=== PATIENT | female | born 1985 | race Caucasian/White ===

== ENCOUNTER 2022-09-24 16:53 | Inpatient (IN) | payer OTHER ==
[2022-09-24] VITALS (11 sets, daily range): BP systolic 105–150; BP diastolic 59–96
[~2022-09-24] VITALS: Ht 175.3 cm; Wt 97.5 kg
[2022-09-24] MEDS ORDERED: IRON27TA2 PO (17:29)
[2022-09-24] MEDS ORDERED: ECOT81TA5 PO (17:29)
[2022-09-24] MEDS ORDERED: PRENTAB9 PO (17:29)
[2022-09-24] MEDS ORDERED: FOLI1TAB11 PO (17:29)
[2022-09-24] MEDS ORDERED: HOME MED LIST COMPLETE! XX SCH (17:30)
[2022-09-24] MEDS ORDERED: LACTATED RINGER'S 1000 ML IV STA (19:16)
[2022-09-24] MEDS ORDERED: LR 1,000 ML IV SCH (19:20)
[2022-09-24] MEDS ORDERED: LIDOCAINE 1% MDV 20ML VIAL INFIL PRN (19:20)
[2022-09-24] MEDS ORDERED: OXYTOCIN DRIP 30 UNITS in IV 1 EA IV SCH (19:20)
[2022-09-24] MEDS ORDERED: TRANEXAMIC ACID INJection 1,000 MG in NS 100 ML IV PRN (19:20)
[2022-09-24] MEDS ORDERED: OXYTOCIN DRIP 30 UNITS in IV 1 EA IV PRN ×4 (19:20)
[2022-09-24] MEDS ORDERED: METHYLERGONOVINE MALEATE 0.2MG/ML 1ML VIAL IM PRN (19:20)
[2022-09-24 19:55] LABS: HEMATOCRIT 37.1 % (36.0-47.0); HEMOGLOBIN 12.9 g/dl (12.0-15.5); MEAN CORPUSCULAR HGB CONC 34.8 g/dl (32.0-36.5); MEAN CORPUSCULAR VOLUME 92.1 fl (80.0-96.0); PLATELET COUNT, AUTOMATED 182 10^3/uL (150-450); RED BLOOD COUNT 4.03 10^6/uL (4.00-5.40); WHITE BLOOD COUNT 10.5 10^3/uL (4.0-10.0)
[2022-09-24] MEDS ORDERED: LR 500 ML IV PRN (23:30)
[2022-09-24] MEDS ORDERED: ONDANSETRON 4MG 2ML VIAL IV PRN (23:30)
[2022-09-24] MEDS ORDERED: NALOXONE INJ 0.4MG/1ML VIAL IV PRN (23:30)
[2022-09-24] MEDS ORDERED: FENTANYL/ROPIVACAINE/NACL BAG 100 ML EPIDURAL SCH (23:30)
[2022-09-24] MEDS ORDERED: diphenhydrAMINE 50MG/ML VIAL IV PRN (23:30)
[2022-09-24] MEDS ORDERED: EPIDURAL/PCA KEYS XX PRN (23:30)
[2022-09-25] VITALS (50 sets, daily range): BP systolic 97–142; BP diastolic 55–106
[2022-09-25] MEDS: ePHEDrine SULFATE 25 MG/5 ML(5MG/ML) SYRINGE IVP PRN ×2 (00:25→00:54)
[2022-09-25 02:44] LABS: CORD GAS ABE A -8.4; CORD GAS HCO3 A 20.3 MEQ/L; CORD GAS O2 SAT A 86.4 %; CORD GAS PCO2 A 53.3 mmHg; CORD GAS PH A 7.198 UNITS; CORD GAS PO2 A 49.5 mmHg; CORD GAS SBC A 17.6 MEQ/L; CORD GAS TCO2 A 21.9 MEQ/L
[2022-09-25 02:45] LABS: CORD GAS ABE V -5.3; CORD GAS HCO3 V 21.3 MEQ/L; CORD GAS O2 SAT V 68.3 %; CORD GAS PCO2 V 45.5 mmHg; CORD GAS PH V 7.289 UNITS; CORD GAS SBC V 19.4 MEQ/L; CORD GAS TCO2 V 22.7 MEQ/L
[2022-09-25 05:19] LABS: CORD GAS ABE V -4.2; CORD GAS HCO3 V 22.6 MEQ/L; CORD GAS O2 SAT V 74.6 %; CORD GAS PCO2 V 47.4 mmHg; CORD GAS PH V 7.297 UNITS; CORD GAS PO2 V 31.1 mmHg; CORD GAS SBC V 20.5 MEQ/L; CORD GAS TCO2 V 24.1 MEQ/L
[2022-09-25 05:21] LABS: CORD GAS ABE A -8.2; CORD GAS HCO3 A 24.4 MEQ/L; CORD GAS O2 SAT A 60.7 %; CORD GAS PCO2 A 82.2 mmHg; CORD GAS PH A 7.091 UNITS; CORD GAS PO2 A 31.1 mmHg; CORD GAS SBC A 17.2 MEQ/L
[2022-09-25] MEDS ORDERED: AMPICILLIN SOD/SULBACTAM SOD 3 GM in D5W MINI-BAG PLUS 100 ML IV ONE (06:50)
[2022-09-25 07:15] LABS: HEMATOCRIT 35.5 % (36.0-47.0); HEMOGLOBIN 12.2 g/dl (12.0-15.5); MEAN CORPUSCULAR HEMOGLOBIN 32.5 pg (27.0-33.0); MEAN CORPUSCULAR HGB CONC 34.4 g/dl (32.0-36.5); MEAN CORPUSCULAR VOLUME 94.7 fl (80.0-96.0); PLATELET COUNT, AUTOMATED 188 10^3/uL (150-450); RED BLOOD COUNT 3.75 10^6/uL (4.00-5.40); WHITE BLOOD COUNT 12.7 10^3/uL (4.0-10.0)
[2022-09-25] MEDS ORDERED: DIBUCAINE 1% OINTMENT 30GM TOP PRN (08:25)
[2022-09-25] MEDS ORDERED: ACETAMINOPHEN TAB 650MG DOSE (2X325MG) PO PRN (08:25)
[2022-09-25] MEDS ORDERED: DOCUSATE SODIUM 100MG CAPSULE PO PRN (08:25)
[2022-09-25] MEDS ORDERED: METHYLERGONOVINE MALEATE 0.2 MG TAB PO PRN (08:25)
[2022-09-25] MEDS ORDERED: RHOGAM 300MCG (1500IU) INJ IM SCH (08:25)
[2022-09-25] MEDS: PRENATAL VITAMINS CHEWABLE TABLET PO SCH (09:00)
[2022-09-25] MEDS ORDERED: ESTROGENS VAGINAL CREAM 30GM PV SCH (09:00)
[2022-09-25] MEDS ORDERED: METHYLERGONOVINE MALEATE 0.2 MG TAB PO SCH (10:30)
[2022-09-25 12:11] LABS: HEMATOCRIT 31.4 % (36.0-47.0); MEAN CORPUSCULAR HEMOGLOBIN 32.5 pg (27.0-33.0); MEAN CORPUSCULAR VOLUME 92.9 fl (80.0-96.0); PLATELET COUNT, AUTOMATED 163 10^3/uL (150-450); RED BLOOD COUNT 3.38 10^6/uL (4.00-5.40); WHITE BLOOD COUNT 14.8 10^3/uL (4.0-10.0)
[2022-09-25] MEDS ORDERED: METHYLERGONOVINE MALEATE 0.2MG/ML 1ML VIAL ONE (13:10)
[2022-09-25] MEDS ORDERED: MORPHINE 4 MG/ML 1ML VIAL IV ONE (13:25)
[2022-09-25] MEDS ORDERED: PROMETHAZINE 25MG/ML 1ML VIAL IV ONE (14:00)
[2022-09-25] MEDS: IBUPROFEN 800 MG TAB PO PRN (18:51)
[2022-09-25] MEDS: METHYLERGONOVINE MALEATE 0.2 MG TAB PO SCH ×2 (20:01→23:53)
[2022-09-26] MEDS: METHYLERGONOVINE MALEATE 0.2 MG TAB PO SCH ×3 (04:10→13:12)
[2022-09-26 06:00] VITALS: BP 112/74
[2022-09-26] MEDS: SLF 3 ML SYR IV SCH ×3 (06:05→22:24)
[2022-09-26 08:44] LABS: HEMATOCRIT 30.8 % (36.0-47.0); HEMOGLOBIN 10.8 g/dl (12.0-15.5); MEAN CORPUSCULAR HEMOGLOBIN 33.3 pg (27.0-33.0); MEAN CORPUSCULAR HGB CONC 35.1 g/dl (32.0-36.5); MEAN CORPUSCULAR VOLUME 95.1 fl (80.0-96.0); PLATELET COUNT, AUTOMATED 191 10^3/uL (150-450); RED BLOOD COUNT 3.24 10^6/uL (4.00-5.40); WHITE BLOOD COUNT 12.3 10^3/uL (4.0-10.0)
[2022-09-26] MEDS: PRENATAL VITAMINS CHEWABLE TABLET PO SCH (09:16)
[2022-09-26] MEDS: IBUPROFEN 800 MG TAB PO PRN ×2 (09:25→19:50)
[2022-09-26 18:00] VITALS: BP 104/67
[2022-09-27 06:00] VITALS: BP 109/57
[2022-09-27] MEDS ORDERED: MEASLES,MUMPS,RUBELLA VACCINE INJ (MMR-II) SC.IMMUN ONE (09:00)
[2022-09-27] MEDS: IBUPROFEN 800 MG TAB PO PRN (12:17)
[2022-09-27] MEDS: PRENATAL VITAMINS CHEWABLE TABLET PO SCH (12:18)
== END 2022-09-27 14:40 | disposition home or self-care (01) | DRG 806 ==
LOC: M LDO 16:53 → M LDI 19:17 → M OBS 09-25 18:56
PROVIDERS: ADMIT Obstetrics & Gynecology; ATTEND Obstetrics & Gynecology
PROC: 10D17Z9 Manual Extraction of Products of Conception, Retained, Via Natural or Artificial Opening (ICD-10-PCS; principal; 2022-09-25)
PROC: 10E0XZZ Delivery of Products of Conception, External Approach (ICD-10-PCS; 2022-09-25)
DX: O30.043 Twin pregnancy, dichorionic/diamniotic, third trimester (principal); Z37.2 Twins, both liveborn; O71.3 Obstetric laceration of cervix; O72.1 Other immediate postpartum hemorrhage; Z3A.38 38 weeks gestation of pregnancy; Z79.82 Long term (current) use of aspirin; Z79.899 Other long term (current) drug therapy

== ENCOUNTER → 2022-10-19 | Outpatient (CLI) | payer OTHER ==
[~2022-10-19] MED LIST: ECOT81TA5 PO; FOLI1TAB11 PO; IRON27TA2 PO; PRENTAB9 PO
== END ==
LOC: M LAB 12:18
PROVIDERS: ATTEND Nurse Practitioner
DX: Z13.228 Encounter for screening for other metabolic disorders (principal)